=== PATIENT | female | born 1995 | race Caucasian/White ===

== ENCOUNTER 2020-01-25 18:35 | Emergency (ER) | payer BC ==
[~2020-01-25] VITALS: Ht 167.6 cm; Wt 54.5 kg
[2020-01-25 18:45] VITALS: BP 132/92; TEMP 98.4
[2020-01-25] MEDS ORDERED: PROZAC 10MG10 MG PO (18:51)
[2020-01-25] MEDS ORDERED: PREDNISONE20 MG PO (19:40)
[2020-01-25 20:00] VITALS: PULSE 81
== END 2020-01-25 20:00 | disposition home or self-care (01) ==
LOC: COL.ER 18:35
DX: L50.0 Allergic urticaria (principal)
CPT/HCPCS: J1200; J2930; J7030; J7512

== ENCOUNTER 2020-02-07 14:11 | Emergency (ER) | payer BC ==
[~2020-02-07] VITALS: Ht 167.6 cm; Wt 54.5 kg
[~2020-02-07 14:11] MED LIST: PREDNISONE20 MG PO; PROZAC 10MG10 MG PO
[2020-02-07 14:16] VITALS: BP 136/77; TEMP 97.7
[2020-02-07 14:59] LABS: COLLECTION METHOD CLEAN CATCH
[2020-02-07 15:02] LABS: BASO % 0.2 % (0.0-2.0); EOS # 0.1 (0.0-0.7); EOS % 0.5 % (0-4.0); GRAN # 6.2 (1.4-6.5); GRAN % 62.2 % (42.2-75.2); HEMATOCRIT 39.9 % (37.0-47.0); HEMOGLOBIN 13.5 g/dl (12.5-16.0); LYMPH # 2.8 (1.2-3.4); LYMPH % 27.8 % (20.0-51.0); MEAN CELL VOLUME 92 fl (80.0-100.0); MEAN CORPUSCULAR HEMOGLOBIN 31 pg (27.0-31.0); MEAN CORPUSCULAR HGB CONC 34 g/dl (33.0-37.0); MEAN PLATELET VOLUME 9.9 fl (7.4-10.4); MONO # 0.9 (0.1-0.6); MONO % 8.7 % (1.7-9.3); PLATELET COUNT 273 K/mm3 (130-400); RED BLOOD COUNT 4.33 M/mm3 (4.10-5.30); REDCELL DISTRIBUTION WIDTH-CV 12.7 % (11.5-14.5)
[2020-02-07 15:07] LABS: MUCOUS Present /lpf; PH 5 (5-8); SQUAMOUS EPITHELIAL 0-2 /hpf; URINE APPEARANCE Clear; URINE BACTERIA None Seen /hpf; URINE BILIRUBIN Negative (NEGATIVE); URINE BLOOD 1+ (NEGATIVE); URINE COLOR Yellow; URINE GLUCOSE Negative (NEGATIVE); URINE KETONE Negative (NEGATIVE); URINE LEUKOCYTE ESTERASE Trace (NEGATIVE); URINE NITRATE Negative (NEGATIVE); URINE PROTEIN(semi-quant) Negative (NEGATIVE); URINE RBC 0-2 /hpf; URINE UROBILINOGEN Negative (NEGATIVE)
[2020-02-07 15:14] LABS: ALBUMIN 4.4 gm/dL (3.5-5.0); BILIRUBIN,TOTAL 0.8 mg/dL (0.0-1.0); CALCIUM 9.4 mg/dL (8.4-10.2); CREATININE, serum 0.58 (0.52-1.25); TOTAL PROTEIN 8.6 gm/dL (6.4-8.2)
[2020-02-07] MEDS ORDERED: ATARAX 25MG25 MG/TAB PO (15:45)
[2020-02-07 15:54] VITALS: PULSE 73
== END 2020-02-07 15:54 | disposition home or self-care (01) ==
LOC: COL.ER 14:11
PROVIDERS: Nurse Practitioner Primary Care
DX: F41.9 Anxiety disorder, unspecified (principal); F32.9 Major depressive disorder, single episode, unspecified; F17.210 Nicotine dependence, cigarettes, uncomplicated
CPT/HCPCS: J0780; J7030